=== PATIENT | female | born 1960 | race Caucasian/White ===

== ENCOUNTER → 2017-03-15 | Outpatient (CLI) | payer MEDICARE, MEDICAID ==
[~2017-03-15] MED LIST: ATEN50TA PO; HYDR-2598; SERT-274 PO; TRIA0.1P11 TOP
[2017-03-15 09:59] LABS: Basophils # (auto) 0.1 uL; Basophils % (auto) 1.3 % (0.0-2.0); CONDITION Y; Eosinophils # (auto) 0.2 uL; Eosinophils % (auto) 2.8 % (0.0-7.0); Hemoglobin 14.5 g/dL (12.2-16.2); Lymphocytes # (auto) 2.2 uL; Lymphocytes % (auto) 31.4 % (10.0-50.0); Mean Corpuscular Hemoglobin 28.2 pg (28.0-32.0); Mean Corpuscular Volume 85.6 fL (80.0-100.0); Mean Platelet Volume 8.2 fL (7.4-10.4); Monocytes # (auto) 0.4 uL; Monocytes % (auto) 5.8 % (0.0-12.0); Neutrophils # (auto) 4.1 uL; Neutrophils % (auto) 58.7 % (37.0-80.0); Platelet Count (auto) 341 10^3/uL (140-450); Red Cell Distribution Width 15.1 % (11.6-16.0)
[2017-03-15 10:26] LABS: Albumin 3.2 g/dL (3.4-5.0); BUN/Creatinine Ratio 16.4; Bilirubin, Total 0.4 mg/dL (0.2-1.0); Calcium 9.2 mg/dL (8.5-10.1); Total Protein 7.4 g/dL (6.4-8.2)
[2017-03-15 11:45] LABS: Urine Bilirubin Negative (Negative); Urine Blood Negative /uL (Negative); Urine Color Yellow (Yellow); Urine Glucose Normal (Normal); Urine Ketone Negative (Negative); Urine Nitrite Negative (Negative); Urine RBC 1 /hpf (0 - 4); Urine Squamous Epithelial Cell FEW /hpf (<5); Urine Urobilinogen Normal (Negative); Urine pH 6.5 (5.0-8.0)
== END | disposition home or self-care (01) ==
LOC: LAB 09:23
PROVIDERS: ATTEND Nurse Practitioner
DX: I10 Essential (primary) hypertension (principal); E55.9 Vitamin D deficiency, unspecified; R79.9 Abnormal finding of blood chemistry, unspecified
CPT/HCPCS: 36415; 80053; 80061; 81001; 82306; 82607; 83036; 84443; 85025

== ENCOUNTER → 2017-11-18 | Outpatient (CLI) | payer MEDICARE, MEDICAID | END | disposition home or self-care (01) | LOC: XY 10:30 | PROVIDERS: ATTEND Family Medicine | DX: I10 Essential (primary) hypertension (principal) | CPT/HCPCS: 93886; 93925 ==

== ENCOUNTER → 2018-05-04 | Outpatient (CLI) | payer MEDICARE, MEDICAID ==
[2018-05-04 10:54] LABS: Basophils # (auto) 0 uL; Basophils % (auto) 0.2 % (0.0-2.0); Eosinophils # (auto) 0.3 uL; Eosinophils % (auto) 3.9 % (0.0-7.0); Hematocrit 46.9 % (36.0-46.0); Hemoglobin 15.4 g/dL (12.2-16.2); Lymphocytes # (auto) 2.5 uL; Lymphocytes % (auto) 34.6 % (10.0-50.0); Mean Corpuscular Hemoglobin 29.1 pg (28.0-32.0); Mean Corpuscular Hgb Conc. 32.8 g/dL (32.0-36.0); Mean Corpuscular Volume 88.7 fL (80.0-100.0); Monocytes # (auto) 0.5 uL; Monocytes % (auto) 6.4 % (0.0-12.0); Neutrophils # (auto) 3.9 uL; Neutrophils % (auto) 54.9 % (37.0-80.0); Nucleated Red Blood Cells % 0.1 %; Platelet Count (auto) 324 10^3/uL (140-450); Red Blood Cells 5.29 10^6/uL (4.0-5.20); Red Cell Distribution Width 14.4 % (11.8-14.3); White Blood Cell 7.1 10^3/uL (4.4-10.8)
[2018-05-04 10:57] LABS: Urine Bacteria NONE SEEN /hpf (None Seen); Urine Blood Negative /uL (Negative); Urine Specific Gravity 1.016 (1.001-1.035); Urine WBC 1 /hpf (0 - 5)
[2018-05-04 11:18] LABS: Albumin 3.3 g/dL (3.4-5.0); BUN/Creatinine Ratio 17.6; Bilirubin, Total 0.5 mg/dL (0.2-1.0); Calcium 9.3 mg/dL (8.5-10.1); Potassium 3.8 mmol/L (3.5-5.1); Total Protein 7.6 g/dL (6.4-8.2)
== END | disposition home or self-care (01) ==
LOC: LAB 09:55
PROVIDERS: ATTEND Nurse Practitioner
DX: E78.5 Hyperlipidemia, unspecified (principal); Z79.899 Other long term (current) drug therapy
CPT/HCPCS: 36415; 80053; 80061; 81001; 83036; 84443; 85025

== ENCOUNTER → 2018-12-19 | Outpatient (CLI) | payer MEDICARE, MEDICAID ==
[2018-12-19 08:41] LABS: Basophils # (auto) 0.1 uL; Basophils % (auto) 2.2 % (0.0-2.0); Eosinophils # (auto) 0.4 uL; Eosinophils % (auto) 5.9 % (0.0-7.0); Hematocrit 46.1 % (36.0-46.0); Lymphocytes # (auto) 1.8 uL; Lymphocytes % (auto) 29.2 % (10.0-50.0); Mean Corpuscular Hemoglobin 28.3 pg (28.0-32.0); Mean Corpuscular Hgb Conc. 32.4 g/dL (32.0-36.0); Mean Corpuscular Volume 87.3 fL (80.0-100.0); Monocytes # (auto) 0.3 uL; Monocytes % (auto) 5.3 % (0.0-12.0); Neutrophils # (auto) 3.5 uL; Neutrophils % (auto) 57.4 % (37.0-80.0); Nucleated Red Blood Cells % 0.2 %; Platelet Count (auto) 300 10^3/uL (140-450); Red Blood Cells 5.28 10^6/uL (4.0-5.20); Red Cell Distribution Width 14.5 % (11.8-14.3)
[2018-12-19 08:43] LABS: Urine Bacteria NONE SEEN /hpf (None Seen); Urine Blood Negative /uL (Negative); Urine Specific Gravity 1.012 (1.001-1.035); Urine WBC <1 /hpf (0 - 5)
[2018-12-19 18:00] LABS: Calcium 8.8 mg/dL (8.5-10.1); Potassium 4.1 mmol/L (3.5-5.1)
[2018-12-19 18:06] LABS: Albumin 3.5 g/dL (3.4-5.0); BUN/Creatinine Ratio 14.5; Bilirubin, Total 0.4 mg/dL (0.2-1.0); Total Protein 7.4 g/dL (6.4-8.2)
== END | disposition home or self-care (01) ==
LOC: LAB 07:58
PROVIDERS: ATTEND Nurse Practitioner
DX: E78.5 Hyperlipidemia, unspecified (principal)
CPT/HCPCS: 36415; 80053; 80061; 81001; 84443; 85025

== ENCOUNTER 2020-03-26 10:47 | Emergency (ER) | payer MEDICARE, MEDICAID ==
[~2020-03-26] VITALS: Ht 172.7 cm; Wt 122.5 kg
[2020-03-26] MEDS ORDERED: MORPHINE SULFATE 4 MG/ML SYR/VIAL IV ONE ×2 (11:15)
[2020-03-26] MEDS ORDERED: ONDANSETRON HCL 4 MG/2 ML VIAL IV ONE ×2 (11:15)
[2020-03-26] MEDS ORDERED: HYDROmorphone HCL 2 MG/ML VL IV ONE ×3 (13:30→18:30)
[2020-03-26] MEDS ORDERED: HYDROmorphone HCL 2 MG/ML VL ONE ×2 (13:40→18:17)
[2020-03-26 18:40] LABS: Basophils # (auto) 0.1 10 ^3/uL (0-0.2); Basophils % (auto) 0.9 % (0.0-2.0); Eosinophils # (auto) 0.1 10 ^3/uL (0-0.8); Eosinophils % (auto) 1.6 % (0.0-7.0); Hematocrit 45.3 % (36.0-46.0); Hemoglobin 14.9 g/dL (12.2-16.2); Lymphocytes % (auto) 22.6 % (10.0-50.0); Mean Corpuscular Hemoglobin 29.3 pg (28.0-32.0); Mean Corpuscular Hgb Conc. 32.8 g/dL (32.0-36.0); Mean Corpuscular Volume 89.3 fL (80.0-100.0); Monocytes # (auto) 0.5 10 ^3/uL (0-1.3); Monocytes % (auto) 5.4 % (0.0-12.0); Neutrophils # (auto) 6.2 10 ^3/uL (1.6-8.6); Neutrophils % (auto) 69.5 % (37.0-80.0); Nucleated Red Blood Cells % 0.1 %; Platelet Count (auto) 287 10^3/uL (140-450); Red Blood Cells 5.07 10^6/uL (4.0-5.20); Red Cell Distribution Width 14.6 % (11.8-14.3)
[2020-03-26 18:52] LABS: Partial Thromboplastin Time 26.8 sec (23.64-32.05)
[2020-03-26 18:56] LABS: Albumin 3.2 g/dL (3.4-5.0); BUN/Creatinine Ratio 15.9; Calcium 8.6 mg/dL (8.5-10.1); Potassium 3.9 mmol/L (3.5-5.1)
[2020-03-26 18:59] LABS: Bilirubin, Total 0.6 mg/dL (0.2-1.0)
[2020-03-26 19:53] VITALS: BP 133/107
== END 2020-03-26 16:29 | disposition short-term general hospital (02) ==
LOC: ER 10:47 → EDBD 10:47 → ER 16:29
DX: S72.401A Unspecified fracture of lower end of right femur, initial encounter for closed fracture (principal); L03.115 Cellulitis of right lower limb; F17.210 Nicotine dependence, cigarettes, uncomplicated; I10 Essential (primary) hypertension; Z79.899 Other long term (current) drug therapy; Z86.718 Personal history of other venous thrombosis and embolism; W01.0XXA Fall on same level from slipping, tripping and stumbling without subsequent striking against object, initial encounter; Y93.89 Activity, other specified; Y92.89 Other specified places as the place of occurrence of the external cause; Y99.8 Other external cause status
CPT/HCPCS: 36415; 71045; 72192; 73552; 73700; 80053; 85025; 85610; 85730; 96374; 96375; 96376; 99285; J1170; J2270; J2405

== ENCOUNTER → 2022-07-15 | Day surgery (SDC) | payer MEDICARE, MEDICAID ==
[2022-07-10 12:06] LABS: Basophils # (auto) 0 10 ^3/uL (0-0.2); Basophils % (auto) 0.2 % (0.0-2.0); Eosinophils # (auto) 0.3 10 ^3/uL (0-0.8); Eosinophils % (auto) 4.9 % (0.0-7.0); Lymphocytes % (auto) 35.4 % (10.0-50.0); Mean Corpuscular Hemoglobin 28.7 pg (28.0-32.0); Mean Corpuscular Hgb Conc. 32.6 g/dL (32.0-36.0); Monocytes # (auto) 0.3 10 ^3/uL (0-1.3); Monocytes % (auto) 5.5 % (0.0-12.0); Nucleated Red Blood Cells % 0.1 %; Red Blood Cells 5.23 10^6/uL (4.0-5.20); Red Cell Distribution Width 14.7 % (11.8-14.3); White Blood Cell 5.6 10^3/uL (4.4-10.8)
[2022-07-10 12:29] LABS: INR 0.94 (0.9-1.15); Partial Thromboplastin Time 25.3 sec (24.6-33.4)
[2022-07-10 14:03] LABS: Albumin 3.2 g/dL (3.4-5.0); Calcium 8.7 mg/dL (8.5-10.1)
[2022-07-10 14:14] LABS: BUN/Creatinine Ratio 14.3; Bilirubin, Total 0.4 mg/dL (0.2-1.0)
[~2022-07-15] VITALS: Ht 160 cm; Wt 108.9 kg
[~2022-07-15] MED LIST changes: -ATEN50TA PO; +ATEN50TA19 PO; +ATOR20TA PO; +CHOL200031 PO; +CYCL-837 PO; +DICL50TA4 PO; +FAMOTIDINE (10MG/ML) 2ML VL IV ONE; +FAMOTIDINE INJECTION 40 MG in SODIUM CHL 0.9% 100 ML IV ONE; -HYDR-2598; +LIDOCAINE VISCOUS 2% 15ML UD MT ONE; +LIDOCAINE VISCOUS 2% 15ML UD ONE; +LISI20TA28 PO; +METF-370 PO; +MIDAZOLAM HCL 5 MG/ML-1ML VIAL IV ONE; +MIDAZOLAM HCL 5 MG/ML-1ML VIAL ONE; +PANT40T PO; -SERT-274 PO; +SERT50TA19 PO; -TRIA0.1P11 TOP; +TRIA0.1P17 TOP; +diphenhdrAMINE HCL 50 MG/1 ML VL IV ONE; +diphenhdrAMINE HCL 50 MG/1 ML VL ONE; +fentaNYL CITRATE 100 MCG/2 ML VL IV ONE; +fentaNYL CITRATE 100 MCG/2 ML VL ONE
[2022-07-15 16:18] VITALS: BP 130/88
== END | disposition home or self-care (01) ==
LOC: GI 12:58
PROVIDERS: ATTEND Internal Medicine Gastroenterology
DX: R13.12 Dysphagia, oropharyngeal phase (principal); K21.00 Gastro-esophageal reflux disease with esophagitis, without bleeding; K44.9 Diaphragmatic hernia without obstruction or gangrene; K29.90 Gastroduodenitis, unspecified, without bleeding; I10 Essential (primary) hypertension; E66.9 Obesity, unspecified; Z79.899 Other long term (current) drug therapy; Z20.822 Contact with and (suspected) exposure to COVID-19; Z98.890 Other specified postprocedural states
CPT/HCPCS: 36415; 43239; 80053; 82962; 85025; 85610; 85730; 88305; 88312; 88342; J1200; J2250; J3010; J3490; J7030; U0003; 99152; 99153

== ENCOUNTER → 2022-09-18 | Day surgery (SDC) | payer MEDICARE, MEDICAID ==
[2022-09-16 11:03] LABS: Basophils # (auto) 0 10 ^3/uL (0-0.2); Basophils % (auto) 0.4 % (0.0-2.0); Eosinophils # (auto) 0.2 10 ^3/uL (0-0.8); Eosinophils % (auto) 3.6 % (0.0-7.0); Hematocrit 46.9 % (36.0-46.0); Hemoglobin 15.5 g/dL (12.2-16.2); Lymphocytes % (auto) 33.1 % (10.0-50.0); Mean Corpuscular Hgb Conc. 33.1 g/dL (32.0-36.0); Mean Corpuscular Volume 87.7 fL (80.0-100.0); Monocytes # (auto) 0.4 10 ^3/uL (0-1.3); Monocytes % (auto) 6.3 % (0.0-12.0); Neutrophils # (auto) 3.4 10 ^3/uL (1.6-8.6); Neutrophils % (auto) 56.6 % (37.0-80.0); Nucleated Red Blood Cells % 0.4 %; Red Blood Cells 5.35 10^6/uL (4.0-5.20)
[2022-09-16 13:18] LABS: Albumin 3.2 g/dL (3.4-5.0); BUN/Creatinine Ratio 14.9; Calcium 9.4 mg/dL (8.5-10.1); Potassium 4.7 mmol/L (3.5-5.1)
[2022-09-16 13:22] LABS: Bilirubin, Total 0.3 mg/dL (0.2-1.0); Total Protein 7.1 g/dL (6.4-8.2)
[~2022-09-18] MED LIST changes: -CHOL200031 PO; -FAMOTIDINE (10MG/ML) 2ML VL IV ONE; -FAMOTIDINE INJECTION 40 MG in SODIUM CHL 0.9% 100 ML IV ONE; -LIDOCAINE VISCOUS 2% 15ML UD MT ONE; -LIDOCAINE VISCOUS 2% 15ML UD ONE; -LISI20TA28 PO; -MIDAZOLAM HCL 5 MG/ML-1ML VIAL IV ONE; -MIDAZOLAM HCL 5 MG/ML-1ML VIAL ONE; -SERT50TA19 PO; +SIMETHICONE 40 MG/0.6 ML ORAL DROP ONE; -diphenhdrAMINE HCL 50 MG/1 ML VL IV ONE; -diphenhdrAMINE HCL 50 MG/1 ML VL ONE; -fentaNYL CITRATE 100 MCG/2 ML VL IV ONE; -fentaNYL CITRATE 100 MCG/2 ML VL ONE
[2022-09-18] MEDS: fentaNYL CITRATE 100 MCG/2 ML VL ONE ×3 (12:34→12:41)
[2022-09-18] MEDS: MIDAZOLAM HCL 2MG/2ML 2ml VIAL (1mg/ml) ONE ×3 (12:34→12:41)
[2022-09-18] MEDS: diphenhdrAMINE HCL 50 MG/1 ML VL ONE ×2 (12:34→12:38)
[2022-09-18 13:15] VITALS: BP 117/57
== END | disposition home or self-care (01) ==
LOC: GI 10:02
PROVIDERS: ATTEND Internal Medicine Gastroenterology
DX: R10.9 Unspecified abdominal pain (principal); K59.00 Constipation, unspecified; K57.30 Diverticulosis of large intestine without perforation or abscess without bleeding; Z98.0 Intestinal bypass and anastomosis status; I10 Essential (primary) hypertension; E11.9 Type 2 diabetes mellitus without complications; F32.A Depression, unspecified; F17.210 Nicotine dependence, cigarettes, uncomplicated; Z98.890 Other specified postprocedural states; Z82.49 Family history of ischemic heart disease and other diseases of the circulatory system; Z79.84 Long term (current) use of oral hypoglycemic drugs; Z79.899 Other long term (current) drug therapy; Z20.822 Contact with and (suspected) exposure to COVID-19
CPT/HCPCS: 36415; 45378; 80053; 82962; 85025; 85610; 85730; J1200; J2250; J3010; J7030; U0003; 99152

== ENCOUNTER 2024-04-19 14:47 | Emergency (ER) | payer OTHER, MEDICAID ==
[~2024-04-19] VITALS: Ht 160 cm; Wt 105.0 kg
[~2024-04-19 14:47] MED LIST changes: -SIMETHICONE 40 MG/0.6 ML ORAL DROP ONE; -TRIA0.1P17 TOP; +TRIA0.1P2 TOP
[2024-04-19 16:04] LABS: Hemoglobin 15.7 g/dL (12.2-16.2); Mean Corpuscular Hemoglobin 29.4 pg (28.0-32.0); Mean Corpuscular Hgb Conc. 32.6 g/dL (32.0-36.0); Mean Corpuscular Volume 90.1 fL (80.0-100.0); Platelet Count (auto) 200 10^3/uL (140-450); Red Blood Cells 5.33 10^6/uL (4.0-5.20); Red Cell Distribution Width 15.1 % (11.8-14.3); White Blood Cell 4.7 10^3/uL (4.4-10.8)
[2024-04-19 16:07] LABS: Basophils % (manual) 0 (0.0-2.0); Blast Cells 0; Metamyelocytes % 0; Myelocytes % 0; Promyelocytes % 0; Reactive Lymphocytes 0
[2024-04-19] MEDS: ONDANSETRON HCL 4 MG/2 ML VIAL IV ONE (16:14)
[2024-04-19] MEDS: SODIUM CHLORIDE 0.9% 1,000 ML IV ONE (16:14)
[2024-04-19] MEDS: MORPHINE SULFATE 4 MG/ML SYR/VIAL IV ONE (16:15)
[2024-04-19 16:16] VITALS: TEMP 97.6; O2SAT 98
[2024-04-19 16:53] LABS: Alanine Aminotransferase 45 U/L (7-40); Albumin 3.1 g/dL (3.2-4.8); Alkaline Phosphatase 309 U/L (46-116); Anion Gap 8 (5-15); Aspartate Aminotransferase 27 U/L (13-40); BUN/Creatinine Ratio 17.1 (10.0-20.0); Blood Urea Nitrogen 19 mg/dL (9-23); Calcium 8.7 mg/dL (8.7-10.4); Carbon Dioxide 23 mmol/L (20-30); Chloride 108 mmol/L (98-107); Glucose 110 mg/dL (74-106); Lipase 19 U/L (12-53); Potassium 3.8 mmol/L (3.5-5.1); Sodium 139 mmol/L (136-145)
[2024-04-19 16:54] LABS: Bilirubin, Total 0.6 mg/dL (0.2-1.0); Total Protein 5.4 g/dL (5.7-8.2)
[2024-04-19 16:59] LABS: Band Neutrophils % (manual) 2; Lymphocytes % (manual) 19 (10.0-50.0); Monocytes % (manual) 4 (0-12)
[2024-04-19 17:00] VITALS: BP 125/74; PULSE 68; RESP 15
[2024-04-19 17:00] LABS: Anisocytosis Slight; Eosinophils % (manual) 15 (0-7); Platelet Estimate Adequate
[2024-04-19] MEDS: IOHEXOL 300 MG/ML 100ML BOTTLE IJ ONE (19:52)
[2024-04-19 22:40] LABS: Urine Bacteria None Seen /hpf (None Seen); Urine WBC None Seen /hpf (0 - 5)
[2024-04-19 22:58] LABS: Urine Blood Negative /uL (Negative); Urine Clarity Ex.Turbid (Clear); Urine Color Yellow (Yellow); Urine Protein, UAD 1+ (Negative); Urine Urobilinogen 3 mg/dL (Negative); Urine pH 6.5 (5.0-9.0)
[2024-04-19 23:00] LABS: Urine Specific Gravity > 1.050 (1.001-1.035)
== END 2024-04-19 21:35 | disposition left against medical advice (07) ==
LOC: ER 14:47
DX: R10.13 Epigastric pain (principal); I10 Essential (primary) hypertension; E11.9 Type 2 diabetes mellitus without complications; F17.210 Nicotine dependence, cigarettes, uncomplicated; F15.90 Other stimulant use, unspecified, uncomplicated; Z98.890 Other specified postprocedural states; Z79.899 Other long term (current) drug therapy
CPT/HCPCS: 36415; 74176; 80053; 81001; 83605; 83690; 84484; 85007; 85027; 96361; 96374; 96375; 99285; J2270; J2405; J7030

== ENCOUNTER 2024-06-08 18:20 | Emergency (ER) | payer OTHER, MEDICAID ==
[~2024-06-08] VITALS: Ht 160 cm; Wt 101.9 kg
[2024-06-08 19:21] VITALS: BP 155/107; PULSE 88; RESP 16; O2SAT 98
== END 2024-06-09 00:49 | disposition left against medical advice (07) ==
LOC: ER 18:28
DX: R22.41 Localized swelling, mass and lump, right lower limb (principal); I10 Essential (primary) hypertension; E11.9 Type 2 diabetes mellitus without complications; F17.210 Nicotine dependence, cigarettes, uncomplicated; F15.90 Other stimulant use, unspecified, uncomplicated; Z79.899 Other long term (current) drug therapy; Z90.49 Acquired absence of other specified parts of digestive tract; Z79.84 Long term (current) use of oral hypoglycemic drugs